=== PATIENT | male | born 1965 | race Caucasian/White ===

== ENCOUNTER 2016-06-23 13:17 | Emergency (ER) | payer OTHER ==
[2016-06-23 13:29] VITALS: BP 119/75
--- NOTE | 2016-06-23 14:09 | ER Document Report ---
ED ENT - General Chief Complaint: Ear Pain Stated Complaint: POSSIBLE HEARING LOSS Notes: Patient is a 50-year-old male who presents emergency Department complaining of tenderness of the right ear. States it is constant denies any pulsatile sensation to it. Patient states that he gets this occasionally maybe once every 2 months of the right ear lasting less than 10 minutes. Patient states that today though he was sitting in a computer watching you to that he has needed some onset of tenderness to the right ear but did not resolve. Patient states that he then started getting very anxious and 16 go away and that he should come to the emergency department. Dizziness, nausea, headache, vision changes, syncope, near syncope, chest pain, weakness. TRAVEL OUTSIDE OF THE [place] IN LAST 30 DAYS: No - Related Data Allergies/Adverse Reactions: No Known Allergies Allergy (Verified 02/07/15 06:38) Past Medical History - Social History Smoking Status: Never Smoker Family History: Reviewed & Not Pertinent Patient has suicidal ideation: No Patient has homicidal ideation: No Renal/ Medical History: Denies: Hx Peritoneal Dialysis - Immunizations Hx Diphtheria, Pertussis, Tetanus Vaccination: Yes Review of Systems - Review of Systems EENT: See HPI -: Yes All other systems reviewed and negative Physical Exam - Vital signs Vitals: Temp Pulse Resp BP Pulse Ox 97.6 F 105 H 17 119/75 94 06/23/16 13:28 06/23/16 13:28 06/23/16 13:28 06/23/16 13:28 06/23/16 13:28 - General General appearance: Appears well, Anxious - HEENT Head: Normocephalic, Atraumatic Eyes: Normal Conjunctiva: Normal Extraocular movements intact: Yes Eyelashes: Normal Pupils: PERRL Ears: Normal External canal: Normal Tympanic membrane: Normal Hearing loss: No: Left, Right, Conduction loss, Sensorineural loss Sinus: Normal Nasal: Normal Mouth/Lips: Normal Mucous membranes: Normal Pharynx: Normal Neck: Normal - Respiratory Respiratory status: No respiratory distress Chest status: Nontender Breath sounds: Normal Chest palpation: Normal - Cardiovascular Rhythm: Regular Heart sounds: Normal auscultation Murmur: No Normal capillary refill: Yes Notes: Negative for temporal bruits bilaterally - Neurological Neuro grossly intact: Yes Cognition: Normal Orientation: AAOx4 Ramona Coma Scale Eye Opening: Spontaneous Glenna Coma Scale Verbal: Oriented Glenna Coma Scale Motor: Obeys Commands Ramona Coma Scale Total: 15 Speech: Normal Cranial nerves: Normal Cerebellar coordination: Normal Motor strength normal: LUE, RUE, LLE, RLE Additional motor exam normals: Equal sap abap programmer. No: Pronator drift, Weakness Sensory: Normal - Psychological Associated symptoms: Anxious - Skin Skin Temperature: Warm Skin Moisture: Dry Skin Color: Normal Skin Turgor: Elastic Course - Re-evaluation Re-evalutation: 06/23/16 18:31 Patient is a 50-year-old male with tinnitus without any concerns for vertigo, CVA, VT, temporal arteritis - Vital Signs Vital signs: Temp Pulse Resp BP Pulse Ox 97.6 F 105 H 17 119/75 94 06/23/16 13:28 06/23/16 13:28 06/23/16 13:28 06/23/16 13:28 06/23/16 13:28 Discharge - Discharge Clinical Impression: Tinnitus Condition: Good Disposition: HOME, SELF-CARE Additional Instructions: Please call ear, nose and throat if your symptoms continue to bother you Tinnitus is a perception of sound in proximity to the head in the absence of an external source. It can be perceived as being within one or both ears, within or around the head, or as an outside distant noise. The sound is often a buzzing , ringing, or hissing, although it can also sound like other noises. Tinnitus can be continuous (a never ending sound) or occur intermittently. Although both may have a significant impact on the patient, the latter is not usually related to a serious underlying medical problem. The sound may be pulsatile or non-pulsatile. Pulsatile tinnitus raises more concern for underlying significant pathology, though non-pulsatile tinnitus may also be associated with underlying disease. Referrals: JODI JACOB MD [[facility]JA] - Follow up in 3-5 days
== END 2016-06-23 14:09 | disposition home or self-care (01) ==
LOC: ER 13:17
DX: H93.19 Tinnitus, unspecified ear (principal); H92.01 Otalgia, right ear; R42 Dizziness and giddiness; R11.0 Nausea; R51 Headache; R55 Syncope and collapse; R07.9 Chest pain, unspecified; R53.1 Weakness
CPT/HCPCS: 99282

== ENCOUNTER 2018-03-07 13:03 | Emergency (ER) | payer OTHER ==
--- NOTE | 2018-03-07 13:17 | ER Document Report ---
ED Medical Screen (RME) - General Chief Complaint: Sore Throat Stated Complaint: FEELS LIKE SOMETHING IN THROAT Time Seen by Provider: 03/07/18 13:15 Mode of Arrival: Ambulatory Information source: Patient TRAVEL OUTSIDE OF THE [place] IN LAST 30 DAYS: No - HPI Patient complains to provider of: FB sensation in throat Onset: This morning - pt swallowed his pills this am but feels like something still caught in throat. Is able to keep liquids down. - Related Data Allergies/Adverse Reactions: No Known Allergies Allergy (Verified 03/07/18 13:04) Past Medical History Endocrine Medical History: Reports: Hx Diabetes Mellitus Type 1 Renal/ Medical History: Denies: Hx Peritoneal Dialysis - Immunizations Hx Diphtheria, Pertussis, Tetanus Vaccination: Yes Physical Exam - Vital signs Vitals: Temp Pulse Resp BP Pulse Ox 98.0 F 81 16 115/76 98 03/07/18 13:07 03/07/18 13:07 03/07/18 13:07 03/07/18 13:07 03/07/18 13:07 Course - Vital Signs Vital signs: Temp Pulse Resp BP Pulse Ox 98.0 F 81 16 115/76 98 03/07/18 13:07 03/07/18 13:07 03/07/18 13:07 03/07/18 13:07 03/07/18 13:07 Doctor's Discharge - Discharge Referrals: WILFRED RECIO MD [Primary Care Provider] - Follow up as needed
--- NOTE | 2018-03-07 13:38 | ER Document Report ---
ED General - General Chief Complaint: Sore Throat Stated Complaint: FEELS LIKE SOMETHING IN THROAT Time Seen by Provider: 03/07/18 13:15 Mode of Arrival: Ambulatory Notes: This a 52-year-old male to the emergency department chief complaint of foreign body sensation in the throat. Patient states that he took his medications this morning. [place] like his Janumet got stuck in his throat. Apparently this is a rather large pill. Hurts to swallow. states that initially he was having a hard time breathing but that has since resolved. Denies any other complaints at this time. No chest pain. No shortness of breath. Took his pills earlier this morning TRAVEL OUTSIDE OF THE [place] IN LAST 30 DAYS: No - HPI Onset: This morning Onset/Duration: Sudden, Worse Quality of pain: Achy Severity: Moderate Pain Level: 3 Associated symptoms: Sore throat Exacerbated by: Food - Related Data Allergies/Adverse Reactions: No Known Allergies Allergy (Verified 03/07/18 13:04) Past Medical History - General Information source: Patient - Social History Smoking Status: Never Smoker Chew tobacco use (# tins/day): No Frequency of alcohol use: Occasional Drug Abuse: None Lives with: Spouse/Significant other Family History: Reviewed & Not Pertinent Patient has suicidal ideation: No Patient has homicidal ideation: No Endocrine Medical History: Reports: Hx Diabetes Mellitus Type 1, Hx Diabetes Mellitus Type 2 Renal/ Medical History: Denies: Hx Peritoneal Dialysis - Immunizations Hx Diphtheria, Pertussis, Tetanus Vaccination: Yes Review of Systems - Review of Systems Notes: Constitutional: denies: Chills, Diaphoresis, Fever, Malaise, Weakness EENT: denies: Eye discharge, Blurred vision, Tearing, Double vision, Nose congestion, Nose discharge,. Difficulty swallowing. Foreign body sensation in the throat Cardiovascular: denies: Palpitations, Heart racing, Orthopnea, Dyspnea, Chest pain Respiratory: denies: Cough, Hurts to breathe, Wheezing, Shortness of breath Gastrointestinal: denies: Abdominal pain, Diarrhea, Nausea, Vomiting, Black stools, bright red blood in stool Genitourinary: denies: Burning, Dysuria, Discharge, Frequency, Flank pain, Hematuria Musculoskeletal: denies: Joint pain, Joint swelling, Muscle pain, Muscle stiffness, back pain Hematologic/Lymphatic: denies: Anemia, Easy bleeding, Easy bruising, Blood clots Neurological/Psychological: denies: Confusion, Dementia, Depression, Loss of consciousness Skin: No lesions, no masses, no skin breakdown, no abscesses Physical Exam - Vital signs Vitals: Temp Pulse Resp BP Pulse Ox 98.0 F 81 16 115/76 98 03/07/18 13:07 03/07/18 13:07 03/07/18 13:07 03/07/18 13:07 03/07/18 13:07 Interpretation: Normal - General General appearance: Appears well, Alert - HEENT Head: Normocephalic, Atraumatic Eyes: Normal Pupils: PERRL - Respiratory Respiratory status: No respiratory distress Chest status: Nontender Breath sounds: Normal Chest palpation: Normal - Cardiovascular Rhythm: Regular Heart sounds: Normal auscultation Murmur: No - Abdominal Inspection: Normal Distension: No distension Bowel sounds: Normal Tenderness: Nontender Organomegaly: No organomegaly - Back Back: Normal, Nontender - Extremities General upper extremity: Normal inspection, Nontender, Normal color, Normal ROM , Normal temperature General lower extremity: Normal inspection, Nontender, Normal color, Normal ROM , Normal temperature, Normal weight bearing. No: Edmundo's sign - Neurological Neuro grossly intact: Yes Cognition: Normal Orientation: AAOx4 Glenna Coma Scale Eye Opening: Spontaneous Morrow Coma Scale Verbal: Oriented Morrow Coma Scale Motor: Obeys Commands Morrow Coma Scale Total: 15 Speech: Normal Motor strength normal: LUE, RUE, LLE, RLE Sensory: Normal - Psychological Associated symptoms: Normal affect, Normal mood - Skin Skin Temperature: Warm Skin Moisture: Dry Skin Color: Normal Course - Re-evaluation Re-evalutation: 03/07/18 16:06 Laboratory 03/07/18 03/07/18 13:22 13:22 WBC 8.7 RBC 5.21 Hgb 15.6 Hct 45.8 MCV 88 MCH 29.9 MCHC 34.0 RDW 14.0 Plt Count 201 Seg Neutrophils % 61.4 Lymphocytes % 31.5 Monocytes % 5.3 Eosinophils % 1.2 Basophils % 0.6 Absolute Neutrophils 5.3 Absolute Lymphocytes 2.7 Absolute Monocytes 0.5 Absolute Eosinophils 0.1 Absolute Basophils 0.1 Sodium 140.1 Potassium 4.5 Chloride 106 Carbon Dioxide 23 Anion Gap 11 BUN 19 Creatinine 0.98 Est GFR ( Amer) > 60 Est GFR (Non-Af Amer) > 60 Glucose 206 H Calcium 9.4 Total Bilirubin 0.7 Direct Bilirubin 0.2 Neonat Total Bilirubin Not Reportable Neonat Direct Bilirubin Not Reportable Neonat Indirect Bili Not Reportable AST 22 ALT 37 Alkaline Phosphatase 97 Total Protein 6.5 Albumin 4.2 Soft Tissue Neck X-Ray 03/07/18 14:47 IMPRESSION: NEGATIVE STUDY OF THE SOFT TISSUES OF THE NECK. No GI or surgery available to do upper endoscopy. Symptoms are still present after GI cocktail. X-ray of the neck unremarkable. Will attempt to secure suitable accepting facility. I did speak with at [facility]. Awaiting callback at this time. 03/07/18 16:[address] Lemus except the patient [place]. We will transfer him by POV at this time. Patient's airway is patent. Talking in full sentences and not drooling so more likely this is just a pill esophagitis but I do not have all of the specialists here to verify this. Patient is more comfortable going over there to be seen again so we will transfer him at this time. - Vital Signs Vital signs: Temp Pulse Resp BP Pulse Ox 98.0 F 81 16 115/76 98 03/07/18 13:07 03/07/18 13:07 03/07/18 13:07 03/07/18 13:07 03/07/18 13:07 - Laboratory Result Diagrams: 03/07/18 13:22 03/07/18 13:22 Laboratory results interpreted by me: 03/07/18 13:22 Glucose 206 H Discharge - Discharge Clinical Impression: Pill esophagitis, Foreign body sensation in throat Condition: Good Disposition: [facility] Instructions: Esophagitis ([facility]), Esophageal Foreign Body ([facility]) Additional Instructions: You are being transferred to [facility]. Go directly to the emergency department. You will be reevaluated there and seen by specialist as needed. Referrals: WILFRED RECIO MD [Primary Care Provider] - Follow up as needed
[2018-03-07 14:07] LABS: ABSOLUTE BASOPHILS # (AUTO) 0.1 10^3/uL (0.0-0.2); ABSOLUTE EOSINOPHILS # (AUTO) 0.1 10^3/uL (0.0-0.6); ABSOLUTE LYMPHOCYTES (AUTO) 2.7 10^3/uL (0.5-4.7); ABSOLUTE MONOCYTES (AUTO) 0.5 10^3/uL (0.1-1.4); ABSOLUTE NEUT (AUTO) 5.3 10^3/uL (1.7-8.2); BASOPHILS % (AUTO) 0.6 % (0-2); EOSINOPHILS % (AUTO) 1.2 % (0-6); HEMATOCRIT 45.8 % (37.9-51.0); HEMOGLOBIN 15.6 g/dL (13.5-17.0); LYMPHOCYTES % (AUTO) 31.5 % (13-45); MEAN CORPUSCULAR HEMOGLOBIN 29.9 pg (27.0-33.4); MEAN CORPUSCULAR VOLUME 88 fl (80-97); MONOCYTES % (AUTO) 5.3 % (3-13); PLATELET COUNT 201 10^3/uL (150-450); RED BLOOD COUNT 5.21 10^6/uL (4.35-5.55); SEGMENTED NEUTROPHILS % (AUTO) 61.4 % (42-78); TOTAL CELLS COUNTED % (AUTO) 100 %; WHITE BLOOD COUNT 8.7 10^3/uL (4.0-10.5)
[2018-03-07 14:37] LABS: ALANINE AMINOTRANSFERASE 37 U/L (21-72); ALBUMIN 4.2 g/dL (3.5-5.0); ALKALINE PHOSPHATASE 97 U/L (38-126); ANION GAP 11 (5-19); ASPARTATE AMINO TRANSFERASE 22 U/L (17-59); BILIRUBIN,DIRECT 0.2 mg/dL (0.0-0.4); BILIRUBIN,TOTAL 0.7 mg/dL (0.2-1.3); BLOOD UREA NITROGEN 19 mg/dL (7-20); CALCIUM 9.4 mg/dL (8.4-10.2); CARBON DIOXIDE 23 mmol/L (22-30); CHLORIDE 106 mmol/L (98-107); GLUCOSE 206 mg/dL (75-110); POTASSIUM 4.5 mmol/L (3.6-5.0); SODIUM 140.1 mmol/L (137-145); TOTAL PROTEIN 6.5 g/dL (6.3-8.2)
--- NOTE | 2018-03-07 15:35 | RADIOLOGY REPORT (SQ) ---
EXAM DESCRIPTION: SOFT TISSUE NECK COMPLETED DATE/TIME: 03/07/2018 3:24 pm REASON FOR STUDY: swallowed fb COMPARISON: None. NUMBER OF VIEWS: Two views. TECHNIQUE: AP and lateral radiographic image of the soft tissues of the neck. LIMITATIONS: None. FINDINGS: EPIGLOTTIS: Normal. Contour normal. Aryepiglottic folds normal. PREVERTEBRAL SOFT TISSUES: Normal. No soft tissue swelling. SUBGLOTTIC AREA: Normal. No narrowing. RETROPHARYNGEAL SPACE: Normal. No soft tissue masses. BONES: No fracture or bone lesion. Mild cervical spondylosis without malalignment. LUNG APICES: Normal. OTHER: No radiopaque foreign body. No other significant finding. IMPRESSION: NEGATIVE STUDY OF THE SOFT TISSUES OF THE NECK. TECHNICAL DOCUMENTATION: JOB ID: [id number] [employer]- All Rights Reserved Reading location - IP/workstation name: [email or web address]
[2018-03-07] MEDS ORDERED: MAG HYDROX/AL HYDROX/SIMETH SUSP 30 ML UDCUP PO ONE (15:42)
[2018-03-07] MEDS ORDERED: METOCLOPRAMIDE HCL ORAL SOLN 10 MG/10 ML UDCUP PO ONE (15:42)
[2018-03-07] MEDS ORDERED: LIDOCAINE 2% VISCOUS SOLN 20 ML UDCUP PO ONE (15:42)
[2018-03-07 16:43] VITALS: BP 122/78
== END 2018-03-07 16:47 ==
LOC: ER 13:03
DX: K20.8 Other esophagitis (principal); R09.89 Other specified symptoms and signs involving the circulatory and respiratory systems; E11.9 Type 2 diabetes mellitus without complications
CPT/HCPCS: 99283; 36415; 85025; 80053; 70360; J3490

== ENCOUNTER → 2018-12-21 | Outpatient (CLI) | payer OTHER ==
[2018-12-21 17:13] LABS: ABSOLUTE EOSINOPHILS # (AUTO) 0.1 10^3/uL (0.0-0.6); ABSOLUTE LYMPHOCYTES (AUTO) 2.7 10^3/uL (0.5-4.7); ABSOLUTE MONOCYTES (AUTO) 0.4 10^3/uL (0.1-1.4); ABSOLUTE NEUT (AUTO) 3.8 10^3/uL (1.7-8.2); BASOPHILS % (AUTO) 0.4 % (0-2); EOSINOPHILS % (AUTO) 1.8 % (0-6); HEMATOCRIT 45.9 % (37.9-51.0); HEMOGLOBIN 15.6 g/dL (13.5-17.0); LYMPHOCYTES % (AUTO) 38.1 % (13-45); MEAN CORPUSCULAR HEMOGLOBIN 29.5 pg (27.0-33.4); MEAN CORPUSCULAR HGB CONC 33.9 g/dL (32.0-36.0); MEAN CORPUSCULAR VOLUME 87 fl (80-97); MONOCYTES % (AUTO) 6.1 % (3-13); PLATELET COUNT 196 10^3/uL (150-450); RED BLOOD COUNT 5.28 10^6/uL (4.35-5.55); RED CELL DISTRIBUTION WIDTH 13.3 % (11.5-14.0); SEGMENTED NEUTROPHILS % (AUTO) 53.6 % (42-78); TOTAL CELLS COUNTED % (AUTO) 100 %
[2018-12-21 17:34] LABS: ALBUMIN 4.6 g/dL (3.5-5.0); ALKALINE PHOSPHATASE 102 U/L (38-126); ANION GAP 11 (5-19); ASPARTATE AMINO TRANSFERASE 26 U/L (17-59); BILIRUBIN,DIRECT 0.1 mg/dL (0.0-0.4); BILIRUBIN,TOTAL 0.8 mg/dL (0.2-1.3); BLOOD UREA NITROGEN 29 mg/dL (7-20); CALCIUM 9.7 mg/dL (8.4-10.2); CARBON DIOXIDE 23 mmol/L (22-30); CHLORIDE 103 mmol/L (98-107); GLUCOSE 209 mg/dL (75-110); POTASSIUM 4.1 mmol/L (3.6-5.0); TOTAL PROTEIN 7.2 g/dL (6.3-8.2)
--- NOTE | 2018-12-22 00:30 | EKG REPORT ---
SEVERITY:- ABNORMAL ECG - SINUS RHYTHM LEFT ANTERIOR FASCICULAR BLOCK : Confirmed by: Jacy Espino MD 22-Dec-2018 00:29:06
== END ==
LOC: OD 15:52
PROVIDERS: ATTEND Orthopaedic Surgery Sports Medicine
DX: Z11.2 Encounter for screening for other bacterial diseases (principal); E11.9 Type 2 diabetes mellitus without complications
CPT/HCPCS: 36415; 80053; 85025; 87070; 93005; 93010

== ENCOUNTER 2020-03-17 10:41 | Emergency (ER) | payer OTHER ==
[2020-03-17 10:51] VITALS: BP 132/98
[2020-03-17] MEDS ORDERED: LIDOCAINE 1%/EPINEPHRINE INJ 20 ML VIAL INJ ONE (11:09)
--- NOTE | 2020-03-17 11:14 | ER Document Report ---
ED Wound - General Chief Complaint: Laceration Stated Complaint: CUT HAND Time Seen by Provider: 03/17/20 11:06 Notes: CHIEF COMPLAINT: Left hand laceration HPI: 54-year-old male presenting for laceration to the palm of the left hand. Tripped over a baby gate at home landing on the left hand. Denies wrist pain. States that he is up-to-date on his tetanus vaccination denies other injuries or complaints ROS: See HPI - all other systems were reviewed and are otherwise negative Constitutional: no fever Integumentary: Positive laceration Allergy: no hives Musculoskeletal: + extremity pain or swelling Neurological: no numbness/tingling, no weakness MEDICATIONS: I agree with the patient medications as charted by the RN. ALLERGIES: I agree with the allergies as charted by the RN. PAST MEDICAL HISTORY/PAST SURGICAL HISTORY: Reviewed and agree as charted by RN. SOCIAL HISTORY: Reviewed and agree as charted by RN. FAMILY HISTORY: No significant familial comorbid conditions directly related to patient complaint EXAM: Reviewed vital signs as charted by RN. CONSTITUTIONAL: Alert and oriented and responds appropriately to questions. Well-appearing; well-nourished HEAD: Normocephalic; atraumatic EYES: Conjunctivae clear, sclerae non-icteric ENT: normal nose; no rhinorrhea; moist mucous membranes NECK: Supple without meningismus CARD: symmetric distal pulses RESP: Normal chest excursion without splinting or tachypnea ABD/GI: non-distended BACK: The back appears normal EXT: Normal ROM in all joints; no cyanosis, no effusions, no edema SKIN: Normal color for age and race; warm; dry; good turgor; 2.5 cm laceration t o the thenar surface of the left hand. No visible or palpable foreign body. Able to fully range the fingers and abduct the thumb without difficulty NEURO: Moves all extremities equally; Motor and sensory function intact PSYCH: The patient's mood and manner are appropriate. Grooming and personal hygiene are appropriate. MDM: 54-year-old male laceration to the palm of the left hand that will require suture closure. He believes he is up-to-date on his tetanus vaccination is no snuffbox tenderness suggesting fracture of the wrist TRAVEL OUTSIDE OF THE [place] IN LAST 30 DAYS: No - Related Data Allergies/Adverse Reactions: No Known Allergies Allergy (Verified 03/17/20 11:02) Past Medical History - Social History Smoking Status: Unknown if Ever Smoked Family History: Reviewed & Not Pertinent Endocrine Medical History: Reports: Hx Diabetes Mellitus Type 1, Hx Diabetes Mellitus Type 2 Renal/ Medical History: Denies: Hx Peritoneal Dialysis Past Surgical History: Reports: Hx Orthopedic Surgery - knee - Immunizations Hx Diphtheria, Pertussis, Tetanus Vaccination: Yes Physical Exam - Vital signs Vitals: Temp Pulse Resp BP Pulse Ox 98.3 F 80 16 132/98 H 99 03/17/20 10:47 03/17/20 10:47 03/17/20 10:47 03/17/20 10:47 03/17/20 10:47 Course - Vital Signs Vital signs: Temp Pulse Resp BP Pulse Ox 98.3 F 80 16 132/98 H 99 03/17/20 10:47 03/17/20 10:47 03/17/20 10:47 03/17/20 10:47 03/17/20 10:47 - Laboratory Results Critical Laboratory Results Reviewed: No Critical Results - Radiology Results Critical Radiology Results Reviewed: No Critical Results Procedures - Laceration/Wound Repair Left Hand Time completed: 12:00 Wound length (cm): 2.5 Wound's Depth, Shape: Superficial, Linear Laceration pre-procedure: Sterile PPE donned, Sterile drapes applied, Other - saline Anesthetic type: 1% Lidocaine w/epi Volume Anesthetic (mLs): 2 Wound explored: Clean, No foreign body removed Irrigated w/ Saline (mLs): 250 Wound Repaired With: Sutures Suture Size/Type: Vicryl, 4:0 Number of Sutures: 5 Layer Closure?: No Post-procedure wound care: Sterile dressing applied Post-procedure NV exam normal: Yes Complications: No Discharge - Discharge Clinical Impression: Laceration of hand, left Qualifiers: Encounter type: initial encounter Foreign body presence: without foreign body Qualified Code(s): S61.412A - Laceration without foreign body of left hand, initial encounter Condition: Stable Disposition: HOME, SELF-CARE Additional Instructions: Motrin or Tylenol for pain. Sutures will dissolve over 7 to 10 days Keep the area as clean and dry as possible applying antibiotic ointment and dressing daily. Return for any redness, discharge, swelling or signs of infection.
== END 2020-03-17 12:28 | disposition home or self-care (01) ==
LOC: ER 10:41
DX: S61.412A Laceration without foreign body of left hand, initial encounter (principal); W17.89XA Other fall from one level to another, initial encounter; Y93.89 Activity, other specified; E11.9 Type 2 diabetes mellitus without complications
CPT/HCPCS: 99282; 12001; J3490